=== PATIENT | male | born 1960 | race Caucasian/White ===

== ENCOUNTER → 2017-08-28 | Day surgery (SDC) | payer OTHER ==
[~2017-08-28] MED LIST: ACETAMINOPHEN325 M1 PO; ACIDOPHILUS1 EAC2 PO; AMITRIPTYLINE H10 M3 PO; AUGMENTIN 500-1 EACH PO; CEFTIN 250 MG250 MG PO; CIPRO500 MG PO; CYMBALTA60 MG PO; FLOMAX0.4 MG PO; HYDROCODONE-AP1 EAC6 PO; IBUPROFEN 200200 M1 PO; METAMUCIL PACK3.4 GM PO; MIRALAX17 GM PO; NOHOMEMEDICATIONS; NORCO 5-325 TA1 EACH PO; PRISTIQ100 MG PO; VISTARIL50 MG PO; WELLBUTRIN XL300 MG PO
--- NOTE | 2017-09-09 11:34 | OP ---
[facility] [address] [place] [address] OPERATIVE REPORT Name: BLAIRE LAW Room: [facility]#: [id number] Admission: 08/28/17 Attend Phys: Paola Pichardo MD Discharge: Date of : 64 Report #: [id number] THIS REPORT FOR: //name// CC: Paola Fernandez MD DATE OF SERVICE: 08/28/2017 PREOPERATIVE DIAGNOSIS: Fecal incontinence. POSTOPERATIVE DIAGNOSIS: Fecal incontinence. PROCEDURE: Stage 1 (advanced) InterStim placement under fluoroscopic guidance. SURGEON: Paola Pichardo M.D. CONTENT DESIGNER: Allen Dunham DO. ESTIMATED BLOOD LOSS: 1 mL. COMPLICATIONS: None. FINDINGS: Excellent S3 placement with good motor response at a low voltage. DESCRIPTION OF PROCEDURE: Fully informed consent was obtained preoperatively. Full discussion of risks, benefits and alternatives. All questions answered. The patient understood the risk of bleeding, infection, reoperation, injury to underlying structures, persistent or worsened fecal incontinence, severe infection, rectal injury, spinal cord infection and catastrophic complications up to including cardiopulmonary failure and . The patient understood and wished to proceed. He was taken to the operating room and prepped and draped in standard sterile fashion in prone. We began with anesthetizing about the S3 foramen identified under live fluoroscopy and marked on either side. Guidewire was placed on either side to identify the site of maximum voltage. After several attempts, it appeared to be primarily on the patient's left S3. This was identified with access needle and placed under live fluoroscopy to be just anterior to that place. Next, the guidewire was placed through this. After being confirmed of good location, the dilator was advanced over the guidewire. This was done under live fluoroscopy. Next, the stimulation probe was slowly positioned under live fluoroscopy from a lateral view to advance until the anterior plate was positioned between lead 2 and 3. We did see under [place] [address] OPERATIVE REPORT Name: ANIBLAIRE Chace Room: [facility]#: [id number] Admission: 08/28/17 Attend Phys: Paola Pichardo MD Discharge: Date of : 64 Report #: [id number] appeared to be running along the nerves, as intentioned. Under low voltage, it did stimulate both reddy as well as toe flexion, confirming S3 placement. Next, the lead was tunneled laterally to be lateral to the sacrum and below the iliac crest. Small pocket was made here after injected local under the fat for placement of the temporary battery. The boot was placed over the battery and the lead was brought into the temporary battery until all 4 blue monitors were seen on the indicator and then it was anchored down with the torque wrench screw on all 4 points. This pocket was washed several times with antibiotic irrigation within sterile water with bacitracin. Following this, it was tunneled across to a separate incision, where the catheter to the InterStim could be seen and hooked up external to the body. The stick side at S3 was closed with 4-0 Monocryl and Steri-Strips and 3-0 Vicryl were used to close the pocket as well as 4-0 Monocryl. A sterile dressing was placed here. Torque was taken off of the external stimulator probe using combination of gauze and Steri-Strips. The patient was programmed in the PACU to optimize sensation and muscle control and was instructed thoroughly on care as well as the bowel battery and taking care of the InterStim device with the external probe on with it. <ELECTRONICALLY SIGNED> By: Paola Pichardo MD 09/09/17 1134 2219 [id number] Pichardo MD /nt
== END | disposition home or self-care (01) ==
LOC: M.SUR 09:22
DX: R15.9 Full incontinence of feces (principal)

== ENCOUNTER → 2017-09-11 | Day surgery (SDC) | payer OTHER ==
--- NOTE | 2017-09-13 20:08 | OP ---
[address] [address] OPERATIVE REPORT Name: BLAIRE LAW Room: [facility]#: [id number] Admission: 09/11/17 Attend Phys: Paola Pichardo MD Discharge: Date of : 64 Report #: [id number] THIS REPORT FOR: //name// CC: Paola Fernandez DATE OF SERVICE: 09/11/2017 PREOPERATIVE DIAGNOSIS: Fecal incontinence. POSTOPERATIVE DIAGNOSIS: Fecal incontinence. PROCEDURE: 1. Insertion of peripheral neurostimulator pulse generator. 2. Electronic analysis of implanted neurostimulator pulse generator system with intraoperative and subsequent programming within the first hour. 3. Electronic analysis of implanted neurostimulator pulse generator system, complex pulse generator. SURGEON: Paola Pichardo MD <ELECTRONICALLY SIGNED> By: Paola Pichardo MD 09/13/172007 1417 1427Dareagan Pichardo MD /nt
--- NOTE | 2017-09-13 20:09 | OP ---
[facility] [address] [place] [address] OPERATIVE REPORT Name: BLAIRE LAW Room: [facility]#: [id number] Admission: 09/11/17 Attend Phys: Paola Pichardo MD Discharge: Date of : 64 Report #: [id number] THIS REPORT FOR: //name// CC: Paola Fernandez MD DATE OF SERVICE: 09/11/2017 ADDENDUM SURGEON: Paola Pichardo M.D. UNIVERSITY RELATIONS VICE PRESIDENT: DO Joie. ESTIMATED BLOOD LOSS: 5 mL. COMPLICATIONS: None. PROCEDURE: Replacement with InterStim II [employer] battery. This was stage II neural stimulator implant. FINDINGS: Excellent response on intraoperative programming. COMPLICATIONS: None. DESCRIPTION OF PROCEDURE: Fully informed consent obtained preoperatively full discussion of risks, benefits, alternatives questions answered. The patient understood risk of severe bleeding, infection, reoperation, lead migration, erosion or failure, continuation or worsening of fecal incontinence or constipation or low anterior syndrome. The patient had more than 50% improvement on preoperative 14-day trial for stage I implant and therefore, he was arranged for this. He was taken to the operating room, prepped and draped in standard sterile prone fashion. A timeout was performed with all in agreement. We began with local numbing anesthesia around the incision. Knife was used to open it. The previously placed temporary battery was opened. The boot was removed from this and the lead protected. The external wire was removed from beneath the sterile draping. The probe was inserted into the neurostimulator II battery and after all blue icons visualized within the battery, it was tightened down with a single audible click heard. I irrigated copiously with bacitracin within sterile water and the wound pocket and made sure it was hemostatic. Battery was replaced back into this area. Then, I closed with 3-0 Vicryl and 4-0 Monocryl. We did intraoperative programming with the lead and we proved it to be within . [place] [address] OPERATIVE REPORT Name: BLAIRE LAW Room: [facility]#: [id number] Admission: 09/11/17 Attend Phys: Paola Pichardo MD Discharge: Date of : 64 Report #: [id number] points. We again confirmed programming postoperatively. Sponge, needle, instrument counts correct at the end of the case. The patient tolerated well. <ELECTRONICALLY SIGNED> By: Paola Pichardo MD 09/13/172008 1421 1450Darcy Angel Pichardo MD /nt
== END | disposition home or self-care (01) ==
LOC: M.SUR 09-04 09:00
DX: R15.9 Full incontinence of feces (principal)

== ENCOUNTER → 2017-10-25 | Outpatient (CLI) | payer OTHER ==
[2017-10-25 12:39] LABS: ABSOLUTE EOSINOPHILS 0.1 thou/uL (0.0-0.7); ABSOLUTE MONOCYTES 0.3 thou/uL (0.0-1.2); ABSOLUTE NEUTROPHILS 4.8 thou/uL (1.6-8.1); BASOPHILS 0.4 %; EOSINOPHILS 1.1 %; HEMATOCRIT 47.1 % (42.0-52.0); HEMOGLOBIN 16.2 gm/dL (14.0-18.0); LYMPHOCYTES 16.1 %; MCH 31.8 pg (26.0-34.0); MCHC 34.5 g/dL (28.0-37.0); MONOCYTES 4.5 %; MPV 7.2 fl. (7.2-11.1); NUCLEATED RBCS 0 /100WBC; PLATELET COUNT* 239 thou/uL (150-400); POLYS 77.9 %; RBC 5.12 mil/uL (4.50-6.00); RDW-CV 13.5 % (10.5-14.5); WBC 6.2 thou/uL (4.0-11.0)
[2017-10-25 12:51] LABS: ALBUMIN 3.9 g/dL (3.4-5.0); CREATININE 1.3 mg/dL (0.6-1.3); POTASSIUM 4.1 mmol/L (3.5-5.1); TOTAL BILIRUBIN 0.4 mg/dL (<0.1-1.0); TOTAL PROTEIN 7.2 g/dL (6.4-8.2)
== END ==
LOC: M.LAB 12:18
DX: C20 Malignant neoplasm of rectum (principal); J98.4 Other disorders of lung

== ENCOUNTER → 2017-10-26 | Outpatient (CLI) | payer OTHER | LOC: M.CT 09:30 | DX: Z09 Encounter for follow-up examination after completed treatment for conditions other than malignant neoplasm (principal); C20 Malignant neoplasm of rectum; N62 Hypertrophy of breast; M47.897 Other spondylosis, lumbosacral region ==

== ENCOUNTER → 2018-05-02 | Outpatient (CLI) | payer OTHER ==
[2018-05-02 10:13] LABS: URINE BILIRUBIN NEGATIVE (Negative); URINE BLOOD NEGATIVE (Negative); URINE CLARITY CLEAR; URINE COLOR YELLOW; URINE GLUCOSE-RANDOM NEGATIVE (Negative); URINE KETONES NEGATIVE (Negative); URINE LEUKOCYTES NEGATIVE (Negative); URINE NITRITE NEGATIVE (Negative); URINE PROTEIN NEGATIVE (Negative); URINE SPECIFIC GRAVITY <= 1.005 (1.005-1.030); URINE UROBILINOGEN 0.2 E.U./dl (0.2-1.0)
[2018-05-02 10:16] LABS: ABSOLUTE EOSINOPHILS 0.2 thou/uL (0.0-0.7); ABSOLUTE LYMPHOCYTES 1.2 thou/uL (0.8-5.3); ABSOLUTE MONOCYTES 0.5 thou/uL (0.0-1.2); ABSOLUTE NEUTROPHILS 4.9 thou/uL (1.6-8.1); BASOPHILS 0.3 %; EOSINOPHILS 2.7 %; HEMATOCRIT 46.7 % (42.0-52.0); HEMOGLOBIN 16.2 gm/dL (14.0-18.0); LYMPHOCYTES 18.1 %; MCH 31.8 pg (26.0-34.0); MCHC 34.6 g/dL (28.0-37.0); MCV 91.7 fL (80.0-100.0); MONOCYTES 7.4 %; MPV 7.2 fl. (7.2-11.1); NUCLEATED RBCS 0 /100WBC; PLATELET COUNT* 261 thou/uL (150-400); POLYS 71.5 %; RDW-CV 13.1 % (10.5-14.5); WBC 6.9 thou/uL (4.0-11.0)
[2018-05-02 10:48] LABS: ALBUMIN 4.2 g/dL (3.4-5.0); ALKALINE PHOSPHATASE 61 U/L (46-116); ANION GAP 9 mmol/L (7-16); BUN 16 mg/dL (7-18); CALCIUM 9.2 mg/dL (8.5-10.1); CHLORIDE 101 mmol/L (98-107); CHOLESTEROL 216 mg/dL (<200); CO2 27 mmol/L (21-32); CREATININE 1.3 mg/dL (0.6-1.3); GLUCOSE 94 mg/dL (70-99); HDL CHOLESTEROL 54 mg/dL (>40); LDL CHOLESTEROL 123 mg/dL (<100); SGOT 26 U/L (15-37); SGPT 43 U/L (30-65); SODIUM 137 mmol/L (136-145); TOTAL BILIRUBIN 0.6 mg/dL (<0.1-1.0); TOTAL PROTEIN 7.3 g/dL (6.4-8.2); TRIGLYCERIDE 197 mg/dL (<150); VLDL 39 mg/dL (<40)
[2018-05-02 10:50] LABS: SERUM ASSESSMENT Clear
== END ==
LOC: M.LAB 09:40
DX: C20 Malignant neoplasm of rectum (principal); C18.9 Malignant neoplasm of colon, unspecified; G62.0 Drug-induced polyneuropathy; N40.1 Benign prostatic hyperplasia with lower urinary tract symptoms

== ENCOUNTER → 2018-05-13 | Outpatient (CLI) | payer OTHER | LOC: M.LAB 14:17 | DX: C20 Malignant neoplasm of rectum (principal); R79.89 Other specified abnormal findings of blood chemistry ==